=== PATIENT | male | born 1970 | race African-American/Black ===

== ENCOUNTER 2017-08-19 04:47 | Emergency (ER) | payer BC | END 2017-08-19 07:12 | disposition home or self-care (01) | LOC: ER 04:47 | DX: S50.01XA Contusion of right elbow, initial encounter (principal); F17.200 Nicotine dependence, unspecified, uncomplicated; F10.20 Alcohol dependence, uncomplicated; X58.XXXA Exposure to other specified factors, initial encounter; Y93.89 Activity, other specified; Y92.89 Other specified places as the place of occurrence of the external cause; Y99.8 Other external cause status | CPT/HCPCS: 73080; 99284 ==